=== PATIENT | female | born 1995 | race African-American/Black ===

== ENCOUNTER 2024-10-09 03:33 | Emergency (ER) | payer BC ==
[~2024-10-09] VITALS: Ht 152.4 cm; Wt 79.5 kg
[2024-10-09] MEDS ORDERED: LORA-622 PO (04:21)
[2024-10-09] MEDS ORDERED: ALBUAER3 IN (04:21)
--- NOTE | 2024-10-09 04:21 | ED.PDOC ---
SOB-HPI HPI Comments THIS IS A 28-YEAR-OLD FEMALE PATIENT PRESENTS TO THE ED CHIEF COMPLAINT WH EEZING. PATIENT REPORTS INTERMITTENT WHEEZING AND COUGH X3 DAYS. PATIENT STATES SHE WAS WORKING CLEANING THE WAREHOUSE AND IT WAS VERY IVELISSE AND SHE NOTES SINCE THEN HAS BEEN SHORTNESS OF BREATH WITH SOME WHEEZING. DOES REPORT HISTORY OF SEASONAL ALLERGIES. SHE DENIES HISTORY OF ASTHMA. SHE STATES WAS USING HER SON'S ALBUTEROL INHALER AT HOME WHICH WAS HELPING HOWEVER SHE RAN OUT. SHE DENIES CHEST PAIN, DIFFICULTY BREATHING, FEVER OR RECENT TRAVEL. Chief Complaint: Cough Time Seen by MD: 03:48 Reviewed notes: Nurses Notes, Medications, Allergies Mode of Arrival: Ambulatory Severity: Mild Past Medical History PAST MEDICAL HISTORY: Denies Surgical History: Denies all surgeries VARIETY PERFORMER History: No Pertinent VARIETY PERFORMER History Family History Family History: Reviewed,noncontributory to illness, No family hx of Cancer, No family hx of DM, No family hx of Heart wallace, No family hx of HTN, No family hx ofKidney wallace, No family hx of Liver wallace, No family hx of Lung wallace, No family hx of Stroke Social History Smoker: Non-Smoker Alcohol: Denies ETOH Use Drugs: Denies Drug Use Constitutional: denies: chills, diaphoresis, fatigue, fever, malaise, sweats, weakness, others EENTM: denies: blurred vision, double vision, ear bleeding, ear discharge, ear drainage, ear pain, ear ringing, eye pain, eye redness, hearing loss, mouth pain, mouth swelling, nasal discharge, nose bleeding, nose congestion, nose pain, photophobia, tearing, throat pain, throat swelling, voice changes, others Respiratory: reports: cough, wheezing; denies: hemoptysis, orthopnea, SOB at rest, shortness of breath, SOB with excertion, stridor, others Cardiovascular: denies: chest pain, dizzy spells, diaphoresis, Dyspnea on exertion, edema, irregular heart beat, left arm pain, lightheadedness, palpitations, PND, syncope, others Gastrointestinal: denies: abdomen distended, abdominal pain, blood streaked bowels, constipated, diarrhea, dysphagia, difficulty swallowing, hematemesis, melena, nausea, poor appetite, poor fluid intake, rectal bleeding, rectal pain, vomiting, others Genitourinary: denies: abnormal vagina bleeding, burning, dyspareunia, dysuria, flank pain, frequency, hematuria, incontinence, pain, , vagina discharge, urgency, others Neurological: denies: dizziness, fainting, headache, left sided numbness, left sided weakness, numbness, paresthesia, pre-existing deficit, right sided numbness, right sided weakness, seizure, speech problems, tingling, tremors, weakness, others Musculoskeletal: denies: back pain, gout, joint pain, joint swelling, muscle pain, muscle stiffness, neck pain, others Integumetry: denies: bruises, change in color, change in hair/nails, dryness, laceration, lesions, lumps, rash, wounds, others Allergic/Immunocompromised: denies: Difficulty Healing, Frequent Infections, Hives, Itching, others Hematologic/Lymphatic: denies: anemia, blood clots, easy bleeding, easy bruising, swollen glands, others Endocrine: denies: excessive hunger, excessive sweating, excessive thirst, excessive urination, flushing, intolerance to cold, intolerance to heat, unexplained weight gain, unexplained weight loss, others Psychiatric: denies: anxiety, bipolar disorder, depression, hopeless, panic disorder, schizophrenia, sleepless, suicidal, others Physical Exam General Appearance: No Apparent Distress, Normal HEENT: Normal ENT Inspection, Pharynx Normal, TMs Normal Neck: Full Range of Motion, Non-Tender Respiratory: No Accessory Muscle Use, No Respiratory Distress, Wheezing (EXPIRATORY BILATERAL LOWER LOBES) Cardiovascular: No Murmur, Normal Peripheral Pulses, Regular Rate/Rhythm Breast Exam: Deferred Gastrointestinal: Non Tender, Soft Genitalia: Deferred Pelvic: Deferred Rectal: Deferred Extremities: No calf tenderness, Normal range of motion Musculoskeletal : Apperance: Normal Neurologic: Alert, manager coding II-XII nml as Tested, No Motor Deficits, Normal Affect, Normal Mood, No Sensory Deficits Cerebellar Function: Normal Reflexes: Normal Skin: Dry, Normal Color, Warm Lymphatic: No Adenopathy Was a procedure done? Was a procedure done?: No Differential Dx Differential Diagnosis: Asthma, Bronchitis X-Ray, Labs, Meds, VS Vital Signs Date Time Temp Pulse Resp B/P (MAP) Pulse Ox O2 Delivery O2 Flow Rate FiO2 10/09/24 03:39 18 98 Room Air* 0 21 10/09/24 03:39 98.4 115 18 128/76 (93) 98 X-Ray, Labs, Meds, VS Comment PATIENT GIVEN DECADRON 10 MG IM REPORTS IMPROVEMENT IN SYMPTOMS, REQUESTING DISCHARGE AT THIS TIME. LIKELY ALLERGIC REDUCED WHEEZING WE WILL SEND ALBUTEROL PRESCRIPTION AND DAILY ANTIHISTAMINE. ADVISED TO FOLLOW UP WITH PCP IN 2-3 DAYS NECESSARY. ADVISED TO RETURN TO THE ER FOR INCREASING WHEEZING, CHEST PAIN, DIFFICULTY BREATHING, SHORTNESS BREATH, HIGH FEVERS OR ANY CONCERNING SYMPTOMS. PATIENT AGREES WITH DISCHARGE PLAN OF CARE. Time of 1ST Reevaluation: 04:17 Reevaluation 1ST: Improved Patient Education/Counseling: Diagnosis, Treatment, Prognosis, Need For Follow Up Family Education/Counseling: No Family Present Departure 1 Departure Time of Disposition: 04:17 Impression: Primary Impression: Wheezing due to allergy Disposition: 01 HOME / SELF CARE / HOMELESS Condition: Stable e-Prescriptions Loratadine (Claritin) 10 Mg Tab 1 TAB PO DAILY for 14 Days, #14 TAB 5 Refills Prov: DREW BUTLER 10/09/24 Albuterol Sulfate (VENTOLIN MDI) 90 Mcg Ih 90 MCG IN Q6HP PRN for 30 Days, #1 INHALER INHALE 1-2 PUFFS EVERY 4-6 HOURS NEEDED FOR COUGH AND WHEEZING. Prov: DREW BUTLER 10/09/24 Discharged With: Self Critical Care Note Critical Care Time?: No Stability Stability form required: No Heart Score Heart Score: Heart Score Response (Comments) Value History N/A 0 EKG N/A 0 Age N/A 0 Risk Factors N/A 0 Troponin N/A 0 Total 0 DREW BUTLER Oct 09, 2024 04:21
[2024-10-09] MEDS: DexAMETHasone SOD PHOS 10MG/1ML VIAL INJ IM ONE (04:25)
[2024-10-09 04:30] VITALS: BP 130/78; PULSE 104; RESP 19; TEMP 98.1; O2SAT 96
== END 2024-10-09 04:38 | disposition home or self-care (01) ==
LOC: ER 03:33
DX: R06.2 Wheezing (principal); R05.9 Cough, unspecified; R06.02 Shortness of breath
CPT/HCPCS: 96372; 99283; J1100